=== PATIENT | female | born 1965 | race Caucasian/White ===

== ENCOUNTER → 2016-05-16 | Day surgery (SDC) | payer OTHER ==
--- NOTE | 2016-05-15 11:08 | TH ---
cc: JANINE STEPHENS M.D. DATE: REASON FOR ADMISSION Facial rhytidectomy and revision of abdominal scar. HISTORY OF PRESENT ILLNESS This is a pleasant 51-year-old female who wishes to have a face aging improvement. PAST MEDICAL HISTORY 1. Revision of breast cosmetic surgery. 2. Abdominoplasty. 3. in 1999. MEDICATIONS 1. Promethazine as needed. 2. Diazepam. 3. . ALLERGIES DARVOCET. HABITS Benign. REVIEW OF SYSTEMS Unremarkable. PHYSICAL EXAMINATION GENERAL APPEARANCE: The patient is a well-developed female in no acute distress. Body habitus is within normal limits. There appear to be no deformities. Appears to have attention to grooming. HEENT: Conjunctiva and lids are within normal anatomical limits. The pupils are reactive to light and accommodation, size and symmetry. There is no evidence of exudate, hemorrhage, or vessel change. The external inspection of the ears and nose fails to demonstrate any pathology, scars, lesions, or masses. Nasal mucosa, septum, and turbinates appear to be well-hydrated as well as the lips and gums. No evidence of masses in the hypopharynx or submental area. CHEST: The patient shows no evidence of intercostal retractions. LUNGS: Clear to auscultation without any abnormal sounds or rubs. CARDIOVASCULAR: The patient has a normal heart rate and rhythm. There is no evidence of noted carotid bruits. Femoral pulses and pedal pulses in the extremities are also within normal limits. ABDOMEN: Soft with no evidence of masses or tenderness. Unable to palpate the liver or spleen. No evidence of hernia. MUSCULOSKELETAL: Appears to be reasonable range of motion of the head, neck, spine, ribs, pelvis, right upper extremity, left upper extremity, right lower extremity, and left lower extremity. The muscle strength and tone appears to be equal and within accepted limits. SKIN: Facial aging is noted. There are no rashes, lesions, or ulcers on the trunk, back or extremities. NEUROLOGICAL: Examination is grossly normal. PSYCHIATRIC: The patient appears to have good orientation of time, place, and person. Does not appear to have any mood affects of depression, anxiety, or agitation. PLAN As above. MD PAUL Vang/ARIANE /10:50 AM /10:57 AM
[~2016-05-16] MED LIST: ACETAMINOPHEN 1000 MG/100 ML VIAL IV ONE; BALANCED SALT SOLN OPHT IRRIG 15 ML BTL ONE; LACTATED RINGER'S 1000 ML INJ 1,000 ML ONE; LIDOCAINE 1%/EPINEPHrine 1:100,000 SOLN 30 ML VIAL ONE; LIDOCAINE 2%/EPINEPHrine PF 1:200,000 20ML SDV ONE; MIDAZOLAM HCL 2 MG/2 ML VIAL ONE; NEOMYCIN/POLYMYXIN/BACITRACIN OINT 15 GM TUBE ONE; NEOMYCIN/POLYMYXIN/HYDROCORT OTIC SUSP 10 ML BTL ONE; ONDANSETRON HCL 4 MG/2 ML VIAL IV PUSH ONE; PROPOFOL 200 MG/20 ML AMP IV ONE; Z.0.NO CURRENT MEDS; ceFAZolin INJ 1,000 MG VIAL ONE
--- NOTE | 2016-05-16 11:20 | TN ---
cc: DAJUAN ESQUIVEL M.D. DATE OF SURGERY 05/16/2016 PREOPERATIVE DIAGNOSIS Early facial aging. POSTOPERATIVE DIAGNOSIS Early facial aging. PROCEDURE 1. Cervicofacial rhytidectomy. 2. Revision of umbilicoplasty SURGEON Dajuan Esquivel MD ANESTHESIA LMA general. ESTIMATED BLOOD LOSS Minimal. DRAINS None. PROCEDURE She was properly consented, marked, anesthetized, the skin sterilized with Microcyn and sterile draping applied. A total of approximately 150 cc of diluted tumescent fluid was applied into the face and neck. Our attention was directed to the umbilical area where a revision was done by transfer of the umbilical scar little more to left. By releasing the whole umbilical scar, removing a little bit of skin in the area and transferred that and sutured into the new better anatomical position utilizing 3-0 Monocryl suture and a horizontal mattress 3-0 Prolene suture. Absorbent dressings were applied after antibiotic ointment. Our attention was directed to the face where, after approaching the face through the pre and postauricular incision, the cervicofacial flap was elevated down to the base of the neck and across to proximal to the nasolabial fold. Plication of the SMAS was done in a true vertical fashion utilizing 4-0 Mersilene suture in a running locking fashion. The lateral platysmaplasty was done by releasing the lateral muscle and plicated laterally into the mastoid fascia. The contralateral side was approached in exactly the same manner. Tissue glue was applied at this point with pressure to prevent any space. Closure of the wounds was done in the postauricular area with 3-0 Monocryl suture and surgical jesse in the hair bearing scalp, 5-0 Monocryl suture and 5-0 fast-absorbing gut in the preauricular area. Absorbent compression dressing was applied. The patient tolerated the procedure well. She was awakened and extubated in the operating room and transferred back to the Post-Anesthesia Care Unit in stable condition. No complications appreciated. The patient tolerated the procedure fairly well. MD PAUL Vang/KIMMY /9:59 AM /11:07 AM
== END | disposition home or self-care (01) ==
LOC: ESDC 06:32
PROVIDERS: ATTEND Plastic Surgery
DX: Z41.1 Encounter for cosmetic surgery (principal)
CPT/HCPCS: 00300; 00400; 13101; 15828; J0131; J0690; J2250; J2405; J3010; J7120

== ENCOUNTER → 2017-07-01 | Day surgery (SDC) | payer OTHER ==
--- NOTE | 2017-06-30 13:58 | TH ---
cc: Dajuan Esquivel MD DATE: 07/01/2017 PROCEDURE TO BE PERFORMED: Abdominal scar revision along with a SlimLipo. HISTORY OF PRESENT ILLNESS: Ms. Cochran is a 52-year-old female who underwent an abdominoplasty back on 11/13/2015. The patient had done well, developed some hypertrophic areas on the umbilical scar, as well as the lower abdomen, reason for which we are proceeding with this procedure. PAST MEDICAL HISTORY: Otherwise unremarkable. She did have an augmentation mammoplasty back in 1999 with a in 1999 and 2001. She did have a static facelift by pa back in 2017. MEDICATIONS: Include Pristiq, promethazine as well as diazepam. ALLERGIES: SHE IS SENSITIVE TO DARVOCET, RATES "IT IS TOO STRONG". SOCIAL HISTORY: Her habits are benign. REVIEW OF SYSTEMS: Otherwise unremarkable. PHYSICAL EXAM CONSTITUTIONAL: General appearance. The patient is a well-developed female in no acute distress. Body habitus is within normal limits. There appear to be no deformities. Appears to have attention to grooming. HEENT: Eyes Conjunctivae and lids are within normal anatomical limits. The pupils are reactive to light and accommodation, size, and symmetry. There is no evidence of exudate, hemorrhage, or vessel change. Ears, mouth, nose, and throat The external inspection of the ears and nose fails to demonstrate any pathology, scars, lesions, or masses. Nasal mucosa, septum, and turbinates appear to be well hydrated as well as the lips and gums. No evidence of masses in the hypopharynx or submental area. RESPIRATORY: The patient shows no evidence of intercostal refractions. Otherwise, lungs are clear to auscultation without any abnormal sounds or rubs. CARDIOVASCULAR: The patient has a normal heart rate and rhythm. There is no evidence of noticed carotid bruits. Femoral pulses and pedal pulses in extremities are also within normal limits. GASTROINTESTINAL AND ABDOMEN: Soft with no evidence of masses or tenderness. Unable to palpate the liver or spleen. No evidence of hernia. MUSCULOSKELETAL: Appears to be reasonable range of motion on the head, neck, spine, ribs, pelvis, right upper extremity, left upper extremity, right lower extremity, and left lower extremity. The muscle strength and tone appears to be equal and within accepted limits. SKIN: There is a well-healed umbilical and lower abdominal area with a little hypertrophy and lipodystrophy of the torso. There is no rashes, lesions, or ulcers on the trunk, back, and extremities. NEUROLOGICAL: Examination is grossly normal. PSYCHIATRIC: The patient appears to have good orientation of time, place, and person. Does not appear to have any mood effects of depression, anxiety, or agitation. PLAN: As above. MD PAUL Vang/TRACI , 01:33 PM , 01:56 PM
[~2017-07-01] MED LIST changes: +ACETAMINOPHEN 1000 MG/100 ML 100 ML IV ONE; -ACETAMINOPHEN 1000 MG/100 ML VIAL IV ONE; -BALANCED SALT SOLN OPHT IRRIG 15 ML BTL ONE; -LIDOCAINE 1%/EPINEPHrine 1:100,000 SOLN 30 ML VIAL ONE; -LIDOCAINE 2%/EPINEPHrine PF 1:200,000 20ML SDV ONE; +LIDOCAINE HCL 1% PF 30 ML VIAL ONE; +MEPERIDINE HCL 25 MG/ML VIAL ONE; -NEOMYCIN/POLYMYXIN/BACITRACIN OINT 15 GM TUBE ONE; -NEOMYCIN/POLYMYXIN/HYDROCORT OTIC SUSP 10 ML BTL ONE
--- NOTE | 2017-07-01 11:51 | TN ---
cc: Dajuan Esquivel MD DATE OF SURGERY: 07/01/2017 PREOPERATIVE DIAGNOSIS: 1. Status post abdominoplasty with further scar deformity, including the umbilical scar. 2. Lipodystrophy of the flanks. PROCEDURE PERFORMED: Liposuction of the flanks and scar revision. SURGEON: Dajuan Esquivel MD. ANESTHESIA: LMA, general. TOTAL TUMESCENT IN: 230. TOTAL FAT OUT: 250. PROCEDURE: She was probably consented, marked and anesthetized. The skin sterilized with Betadine solution and sterile draping applied. Blunt needles were utilized to tumesce the flanks as well as the lower abdomen. I proceeded in utilizing a 1.5 mm cannula to liposuction the flanks as well as the lower abdomen. With this, I proceeded and a total of 250 mL of fat was removed. After that, I proceeded to perform the excision of the scar by de-epithelizing it. I proceeded and used the scar as a filler utilizing cautery to elevate the superior and inferior flaps and it was appropriately advanced into the defect and sutured utilizing multiple 2-0 Monocryl suture layers on Devi's fascia, dermis and sub-Q. The umbilical scar was also addressed in the same fashion, being only the upper third of it. I utilized, however, 3-0 Monocryl suture and 3-0 Prolene to close the wound. Prineo Dermabond was utilized to cover the wounds, as well as the coverlets. The patient was awakened and extubated in the operating room, transferred back to the postanesthesia care unit in stable condition. No complications appreciated. The patient tolerated the procedure fairly well. MD PAUL Vang/ESCOBAR/ese , 08:22 AM , 08:46 AM
== END | disposition home or self-care (01) ==
LOC: ESDC 06:19
PROVIDERS: ATTEND Plastic Surgery
DX: Z41.1 Encounter for cosmetic surgery (principal)
CPT/HCPCS: 00300; 00400; 13100; 15877; J0131; J0690; J2175; J2250; J2405; J3010; J7120